=== PATIENT | female | born 1995 ===

== ENCOUNTER 2024-03-27 12:38 | Outpatient (CLI) | payer MEDICAID | END 2024-03-27 23:59 | disposition home or self-care (01) | LOC: RAD 12:38 | PROVIDERS: ATTEND Student in an Organized Health Care Education/Training Program | DX: O32.1XX0 Maternal care for breech presentation, not applicable or unspecified (principal); Z3A.21 21 weeks gestation of pregnancy | CPT/HCPCS: 76811 ==